=== PATIENT | female | born 1970 | race Two or more races ===

== ENCOUNTER 2023-12-10 08:07 | Day surgery (SDC) | payer OTHER | END 2023-12-10 16:15 | disposition home or self-care (01) | LOC: AMB-ENDOS 08:07 → CIR.AMB 14:45 → AMB-ENDOS 16:15 | PROVIDERS: ATTEND Colon & Rectal Surgery | DX: R10.32 Left lower quadrant pain (principal); K64.8 Other hemorrhoids; Z20.822 Contact with and (suspected) exposure to COVID-19 ==